=== PATIENT | male | born 1960 | race Two or more races ===

== ENCOUNTER 2017-07-23 03:18 | Emergency (ER) | payer MEDICARE, MEDICAID ==
--- NOTE | 2017-07-23 03:42 | ED Physician Chart ---
ED Chief Complaint/HPI - Patient Information Date Seen:: 07/23/17 Time Seen:: 03:37 Chief Complaint:: pain History of Present Illness:: pt says he got out of bed and fell and has increased pain at neck and rt shldr and low mid back. no loc. no head impact. no obvious external injury he has chronic neck/back pain w sciatica and spinal stenosis hx. he is not haveing trouble walking or moving limbs or w incontinence. pt here w his dad. he has been on pain mgt but says he stopped going to pain mgt dr Padron in 06/19 and has appt to see new pain mgt dr 08/05/17 Pt says he has plan to meet w new pain mgt Dr Yancey for first time on he admits after asked 3x that he has run out of his regular pain meds which are MS and percocet.10s no recent fever or illness pt says he has freq falls and this is not new. PDMP does corroborate pt med hx w Dr Padron...however pt did see Dr Yancey on 07/11/17 and had #120 norco 10s rxd. (although no MS), which he appears to have been intentionally misleading about. Allergies:: Allergies Allergy/AdvReac Type Severity Reaction Status Date / Time No Known Allergies Allergy Verified 07/23/17 03:28 Vitals:: Vital Signs - 8 hr 07/23/17 03:25 Temp 98.4 F HR 89 RR 18 BP 144/93 O2 Sat % 98 Historian:: Patient, Family Member (pts dad) ED Review of Systems - Review of Systems General/Constitutional: No fever, No chills, No weight loss, No weakness, No diaphoresis, No edema, No loss of appetite Skin: No skin lesions, No rash, No bruising Head: No headache, No light-headedness Eyes: No loss of vision, No pain, No diplopia ENT: No earache, No nasal drainage, No sore throat, No tinnitus Neck: No neck pain, No swelling, No thyromegaly, No stiffness, No mass noted Cardio Vascular: No chest pain, No palpitations, No PND, No orthopnea, No edema Pulmonary: No SOB, No cough, No sputum, No wheezing GI: No nausea, No vomiting, No diarrhea, No pain, No melena, No hematochezia, No constipation, No hematemesis G/U: No dysuria, No frequency, No hematuria Musculoskeletal: Bone or joint pain, Back pain, Muscle pain Endocrine: No polyuria, No polydipsia Psychiatric: No prior psych history, No depression, No anxiety, No suicidal ideation Hematopoietic: No bruising, No lymphadenopathy Allergic/Immuno: No urticaria, No angioedema Neurological: No syncope, No focal symptoms, No weakness, No paresthesia, No headache, No seizure, No dizziness, No confusion, No vertigo ED Past Medical History - Past Medical History Past Medical History: Dyslipidemia, Seizures, Other (spinal stenosis, sciatica) Social History: Non Smoker, No Alcohol, No Drug Use, Lives With Parents Medication: Reviewed Family Medical History - Family Member Brother History Unknown: Yes Ethnicity: Living Status: Still Living Hx Family Cancer: Yes Hx Family Coronary Artery Disease: No Hx Family Congestive Heart Failure: No Hx Family Hypertension: Yes Hx Family Stroke: No Hx Family Diabetes: Yes Hx Family Seizures: Yes Hx Family Dementia: No Hx Family AIDS: No Hx Family HIV: No Hx Family COPD: No Hx Family Hepatitis: No Hx Family Psychiatric Problems: No Hx Family Tuberculosis: No ED Physical Exam - Physical Examination General/Constitutional: Awake, Well-developed, well-nourished, Alert, No distress, GCS 15, Non-toxic appearing, Ambulatory Other Gen/Cons comments:: pt seems alert and mobile and in nad. he is ambulatory. no focal neuro defecit. no visible sign of trauma..no bruising etc.. pos post neck tndrness. good rom. Head: Atraumatic Eyes: Lids, conjuctiva normal, PERRL, EOMI Skin: Nl inspection, No rash, No skin lesions, No ecchymosis, Well hydrated, No lymphadenopathy ENMT: External ears, nose nl, Nasal exam nl, Lips, teeth, gums nl Neck: Nontender, Full ROM w/o pain, No JVD, No nuchal rigidity, No bruit, No mass, No stridor Respiratory: Nl effort/Exclusion, Clear to Auscultation, No Wheeze/Rhonchi/Rales Cardio Vascular: RRR, No murmur, gallop, rubs, NL S1 S2 GI: No tenderness/rebounding/guarding, No organomegaly, No hernia, Normal BS's, Nondistended, No mass/bruits, No McBurney tenderness Other GI comments:: nontndr. no spleen tndr : No CVA tenderness Extremities: No tenderness or effusion, Full ROM, normal strength in all extremities, No edema, Normal digits & nails Neuro/Psych: Alert/oriented, DTR's symmetric, Normal sensory exam, Normal motor strength, Judgement/insight normal, Mood normal, Normal gait, No focal deficits Misc: No paraspinal tenderness Other Misc comments:: back tndr lumbar area ok rom. no aaa on abd exam. ED Labs/Radiology/EKG Results - Radiology Results Results: rt shldr - nrml , djd, no fx c spine xray - nrml no fx ED Septic Shock - . Is Septic Shock (SBP<90, OR Lactate>4 mmol\L) present?: No - <6hrs of presentation: Vital Signs: Vital Signs - 8 hr 07/23/17 03:25 Temp 98.4 F HR 89 RR 18 BP 144/93 O2 Sat % 98 ED Reassessment (Disposition) - Reassessment Reassessment:: pt wants more pain med. reviewed results w pt. explained about discrepancy in PDMP files and he needs to go to pain mgt dr for more pain meds. pt says his neck is stiff and wants muscle relaxer. explained my worries about pt and need for honest hx when he comes here for pain mgt needs. rx flexeril 10 no 10 Reassessment Condition:: Improved - Diagnosis Diagnosis:: neck strain rt shoulder strain - Aftercare/Follow up Instructions Aftercare/Follow-Up Instructions:: Counseled pt regarding lab results/diagnosis & need follow up - Patient Disposition Discharge/Transfer:: Home Condition at Disposition:: Improved
[2017-07-23] MEDS ORDERED: HYDROmorphone 1 mg/mL 1mL Syr IM STA (03:45)
[2017-07-23] MEDS ORDERED: HYDROmorphone 1 mg/mL 1mL Syr ONE (03:48)
--- NOTE | 2017-07-23 08:29 | Diagnostic Imaging Report ---
Right shoulder (2 views) HISTORY: Pain, trauma No acute abnormalities. No fractures. No dislocation. IMPRESSION: No acute abnormalities
--- NOTE | 2017-07-23 08:29 | Diagnostic Imaging Report ---
Cervical spine (5 views) HISTORY: Pain, trauma Limited exam as the bodies of C3 5, C6, C7 are not well visualized in the lateral projection. Alignment appears normal. No obvious fractures are seen. Neural foraminal encroachment related to hypertrophic bony changes noted at C5-6 and C6-7 on the right side. The prevertebral soft tissues appear normal. Atherosclerotic calcification suggested in the region of the left carotid arteries. IMPRESSION: 1. Limited exam 2. Degenerative changes 3. No obvious acute abnormalities 4. Atherosclerotic vascular changes
== END 2017-07-23 06:24 | disposition home or self-care (01) ==
LOC: ER 03:18
DX: S46.911A Strain of unspecified muscle, fascia and tendon at shoulder and upper arm level, right arm, initial encounter (principal); S16.1XXA Strain of muscle, fascia and tendon at neck level, initial encounter; X58.XXXA Exposure to other specified factors, initial encounter; Y93.89 Activity, other specified; Y92.89 Other specified places as the place of occurrence of the external cause; Y99.8 Other external cause status
CPT/HCPCS: 99284; 96372 ×2; 72050; 73030; Q0162; J1170; J1200; Z7502